=== PATIENT | male | born 1980 | race Caucasian/White ===

== ENCOUNTER 2018-08-14 11:52 | Emergency (ER) | payer OTHER ==
[~2018-08-14] VITALS: Ht 190.5 cm; Wt 97.5 kg
[2018-08-14] MEDS ORDERED: BIKTARVY 50-201 EACH PO (12:33)
[2018-08-14] MEDS ORDERED: NORCO 5-325 TA1 EACH PO (13:09)
[2018-08-14 13:30] VITALS: BP 165/114
== END 2018-08-14 13:31 | disposition home or self-care (01) ==
LOC: ER 11:52
DX: S20.229A Contusion of unspecified back wall of thorax, initial encounter (principal); S10.93XA Contusion of unspecified part of neck, initial encounter; Z87.891 Personal history of nicotine dependence; W01.0XXA Fall on same level from slipping, tripping and stumbling without subsequent striking against object, initial encounter; Y93.89 Activity, other specified; Y92.89 Other specified places as the place of occurrence of the external cause; Y99.8 Other external cause status